=== PATIENT | male | born 1950 | race Caucasian/White ===

== ENCOUNTER 2016-12-09 17:50 | Inpatient (IN) | payer MEDICAID ==
--- NOTE | 2016-12-09 18:04 | ER Document Report ---
Doctor's Note Notes: 12/09/16 18:30 66-year-old chronic alcoholic who has stopped drinking presents after going on alcohol binge over the past week. Patient notes she's been drinking 18 beers a day. Denies a specific reason why he is doing such Patient admits shortness of breath states he always has shortness of breath I have greeted and performed a rapid initial assessment of this patient. A comprehensive ED assessment and evaluation of the patient, analysis of test results and completion of the medical decision making process will be conducted by additional ED providers. General: Well-appearing male in no respiratory distress
[2016-12-09 18:44] LABS: ABSOLUTE BASOPHILS # (AUTO) 0.1 10^3/uL (0.0-0.2); ABSOLUTE EOSINOPHILS # (AUTO) 0.1 10^3/uL (0.0-0.6); ABSOLUTE LYMPHOCYTES (AUTO) 1.6 10^3/uL (0.5-4.7); ABSOLUTE MONOCYTES (AUTO) 0.7 10^3/uL (0.1-1.4); ABSOLUTE NEUT (AUTO) 5.1 10^3/uL (1.7-8.2); BASOPHILS % (AUTO) 0.7 % (0-2); EOSINOPHILS % (AUTO) 1.5 % (0-6); HEMATOCRIT 41.1 % (37.9-51.0); HEMOGLOBIN 14.6 g/dL (13.5-17.0); HGB HCT DIFFERENCE 2.7; LYMPHOCYTES % (AUTO) 21.3 % (13-45); MEAN CORPUSCULAR HEMOGLOBIN 32.6 pg (27.0-33.4); MEAN CORPUSCULAR HGB CONC 35.5 g/dL (32.0-36.0); MEAN CORPUSCULAR VOLUME 92 fl (80-97); RED BLOOD COUNT 4.47 10^6/uL (4.35-5.55); RED CELL DISTRIBUTION WIDTH 12.6 % (11.5-14.0); SEGMENTED NEUTROPHILS % (AUTO) 67.5 % (42-78); WHITE BLOOD COUNT 7.5 10^3/uL (4.0-10.5)
[2016-12-09 19:05] LABS: ALANINE AMINOTRANSFERASE 57 U/L (21-72); ALBUMIN 4.3 g/dL (3.5-5.0); ALCOHOL 114 mg/dL (NONE DETECTED); ALKALINE PHOSPHATASE 74 U/L (38-126); ANION GAP 16 (5-19); ASPARTATE AMINO TRANSFERASE 50 U/L (17-59); BILIRUBIN,DIRECT 0.3 mg/dL (0.0-0.4); BILIRUBIN,TOTAL 0.7 mg/dL (0.2-1.3); BLOOD UREA NITROGEN 6 mg/dL (7-20); CARBON DIOXIDE 23 mmol/L (22-30); CHLORIDE 73 mmol/L (98-107); CREATINE KINASE 112 U/L (55-170); CREATININE RESULT 0.57 mg/dL (0.52-1.25); GLUCOSE 82 mg/dL (75-110); LIPASE 118.3 U/L (23-300)
[2016-12-09 19:08] LABS: APPEARANCE,URINE CLEAR; BILIRUBIN,URINE NEGATIVE (NEGATIVE); GLUCOSE, URINE NEGATIVE (NEGATIVE); KETONES,URINE TRACE mg/dL (NEGATIVE); LEUKOCYTE ESTERASE,URINE NEGATIVE (NEGATIVE); NITRITE,URINE NEGATIVE (NEGATIVE); PROTEIN,URINE NEGATIVE (NEGATIVE); URINE SPECIFIC GRAVITY 1.006; UROBILINOGEN,URINE NEGATIVE mg/dL (<2.0)
[2016-12-09 19:16] LABS: CREATINE KINASE MB 2.18 ng/mL (<4.55)
[2016-12-09 19:21] LABS: URINE BARBITURATES SCREEN NEGATIVE; URINE METHADONE SCREEN NEGATIVE; URINE OPIATES LOW NEGATIVE; URINE PHENCYCLIDINE SCREEN NEGATIVE
[2016-12-09 19:28] LABS: SODIUM 111.9 mmol/L (137-145); TROPONIN I < 0.012 ng/mL
--- NOTE | 2016-12-09 19:55 | ER Document Report ---
ED General - General Chief Complaint: Breathing Difficulty Stated Complaint: SHORT OF BREATH Notes: Patient is a 66-year-old male with past medical history of COPD and chronic alcoholism who presents with concerns about his recurrent alcohol use as well as some mild increased shortness of breath over the last 48 hours. Patient admits to being on a binge over the last several weeks taking 18-20 beers a day. He has had minimal additional food intake. He denies a prior history of complicated withdrawals. States he mostly came to the emergency department for assistance to obtain resources to help him get back on track with sobriety as an outpatient. He denies any chest pain, shortness of breath, nausea, vomiting , headache, neck pain, altered mental status the time of my evaluation. States this is similar to when he is had relapses in the past. He has not seen his primary care doctor regarding today's concerns. TRAVEL OUTSIDE OF THE [place] IN LAST 30 DAYS: No - Related Data Allergies/Adverse Reactions: prednisone Allergy (Verified 12/09/16 17:53) Past Medical History - General Information source: Patient - Social History Smoking Status: Current Every Day Smoker Frequency of alcohol use: 18 beers daily Drug Abuse: None Lives with: Family Family History: Reviewed & Not Pertinent Patient has suicidal ideation: No Patient has homicidal ideation: No Pulmonary Medical History: Reports: Hx COPD Renal/ Medical History: Denies: Hx Peritoneal Dialysis Review of Systems - Review of Systems Notes: Constitutional: Negative for fever. HENT: Negative for sore throat. Eyes: Negative for visual changes. Cardiovascular: Negative for chest pain. Respiratory: Negative for shortness of breath. Gastrointestinal: Negative for abdominal pain, vomiting or diarrhea. Genitourinary: Negative for dysuria. Musculoskeletal: Negative for back pain. Skin: Negative for rash. Neurological: Negative for headaches, weakness or numbness. 10 point ROS negative except as marked above and in HPI. Physical Exam - Vital signs Vitals: Temp Pulse Resp BP Pulse Ox 98.3 F 91 16 122/58 L 95 12/09/16 17:55 12/09/16 17:55 12/09/16 17:55 12/09/16 17:55 12/09/16 17:55 Interpretation: Normal Notes: PHYSICAL EXAMINATION: GENERAL: Well-appearing, well-nourished and in no acute distress. HEAD: Atraumatic, normocephalic. EYES: Pupils equal round and reactive to light, extraocular movements intact, sclera anicteric, conjunctiva are normal. ENT: nares patent, oropharynx clear without exudates. Moist mucous membranes. NECK: Normal range of motion, supple without lymphadenopathy LUNGS: Breath sounds clear to auscultation bilaterally and equal. No wheezes rales or rhonchi. HEART: Regular rate and rhythm without murmurs ABDOMEN: Soft, nontender, normoactive bowel sounds. No guarding, no rebound. No masses appreciated. EXTREMITIES: Normal range of motion, no pitting or edema. No cyanosis. NEUROLOGICAL: No focal neurological deficits. Moves all extremities spontaneously and on command. PSYCH: Normal mood, normal affect. SKIN: Warm, Dry, normal turgor, no rashes or lesions noted. Course - Re-evaluation Re-evalutation: 12/09/16 19:53 Patient presents with concerns of recent alcohol use as well as shortness of breath. Patient is overall extremely well in appearance, vitals within normal limits and he is in no acute distress. Lung exam is clear without any wheezing. Chest x-ray likewise is clear. Remainder laboratories obtained in triage are remarkable for a severe hyponatremia at 111 concerning for possible risk for hyponatremic seizures. Patient has been placed on seizure precautions and will be fluid restricted. He will require admission to the hospital for the severe hyponatremia - Vital Signs Vital signs: Temp Pulse Resp BP Pulse Ox 97.6 F 77 20 126/68 H 97 12/10/16 00:31 12/10/16 00:31 12/10/16 00:31 12/10/16 00:31 12/10/16 00:31 - Laboratory Result Diagrams: 12/09/16 18:30 12/10/16 00:35 Laboratory results interpreted by me: 12/09/16 12/09/16 18:30 18:30 Sodium 111.9 L* Chloride 73 L BUN 6 L Urine Ketones TRACE H Salicylates < 1.0 L Acetaminophen < 10 L - Diagnostic Test Radiology reviewed: Image reviewed, Reports reviewed Radiology results interpreted by me: 12/09/16 19:54 Chest x-ray: No acute infiltrate or mass - EKG Interpretation by Me Additional EKG results interpreted by me: 12/09/16 19:55 Normal sinus rhythm. Rate 79. No ST elevations or depressions. QTC is 455. Discharge - Discharge Clinical Impression: Hyponatremia, COPD exacerbation Condition: Fair Disposition: ADMITTED INPATIENT [facility] Admitted: [facility]
[2016-12-09] MEDS ORDERED: IPRATROPIUM/ALBUTEROL 0.5-2.5 MG/3 ML AMPUL NEB PRN (20:20)
[2016-12-09] MEDS ORDERED: ONDANSETRON HCL INJ/PF 4 MG/2 ML SDV IV PRN (20:20)
[2016-12-09] MEDS ORDERED: LORAZEPAM INJ 2 MG/1 ML VIAL IV PRN (20:20)
[2016-12-09] MEDS ORDERED: THIAMINE HCL INJ 200 MG/2 ML VIAL ONE (20:51)
[2016-12-09] MEDS ORDERED: FOLIC ACID INJ 5 MG/1 ML 10 ML VIAL ONE (20:52)
[2016-12-09] MEDS ORDERED: THIAMINE HCL 100 MG, FOLIC ACID 1 MG in NORMAL SALINE 50 ML IV ONE (21:00)
[2016-12-09] MEDS: HEPARIN SOD (PORCINE) 5,000 UNIT/ML 1 ML SYRINGE SUBCUT SCH (22:03)
--- NOTE | 2016-12-09 22:08 | PDOC H&P ---
History of Present Illness Admission Date/PCP: 12/09/16 21:28 Patient complains of: Shortness of breath History of Present Illness: JANET VICTOR is a 66 year old male with a past medical history of hypertension, alcohol dependence, COPD and Tobacco Dependence. He been in his usual state of health until approximately 48 hours prior to presentation with excessive shortness of breath with exertion and nonproductive cough. He denies fever chills nausea vomiting but admits developing alcohol withdrawal tremor his last drink was 4 hours ago and normally drinks approximately 18 beers a day. His sodium is markedly abnormal at 111 he is referred to the hospitalist for admission denying headache blurred vision or confusion Past Medical History Cardiac Medical History: Reports: Hypertension Pulmonary Medical History: Reports: Chronic Obstructive Pulmonary Disease (COPD) Psychiatric Medical History: Reports: Alcohol Dependency, Tobacco Dependency Social History Smoking Status: Current Every Day Smoker Cigarettes Packs Per Day: 3 - 144pk/yrs Frequency of Alcohol Use: Heavy - Admit 18 beers per day with history of blackouts and DTs Drugs: None - Advance Directive Resuscitation Status: Full Code Family History Family History: COPD Parental Family History Reviewed: Yes Children Family History Reviewed: Yes Sibling(s) Family History Reviewed.: Yes Medication/Allergy Allergies/Adverse Reactions: prednisone Allergy (Verified 12/09/16 17:53) Review of Systems Constitutional: ABSENT: chills, fever(s), headache(s), weight gain, weight loss Eyes: ABSENT: visual disturbances Ears: ABSENT: hearing changes Cardiovascular: ABSENT: chest pain, dyspnea on exertion, edema, orthropnea, palpitations Respiratory: PRESENT: cough, dyspnea. ABSENT: hemoptysis, sputum Gastrointestinal: ABSENT: abdominal pain, constipation, diarrhea, hematemesis, hematochezia, nausea, vomiting Genitourinary: ABSENT: dysuria, hematuria Neurological: ABSENT: abnormal gait, abnormal speech, confusion, dizziness, focal weakness, syncope Psychiatric: ABSENT: anxiety, depression, homidical ideation, suicidal ideation Endocrine: ABSENT: cold intolerance, heat intolerance, polydipsia, polyuria Hematologic/Lymphatic: ABSENT: easy bleeding, easy bruising Physical Exam Vital Signs: Temp Pulse Resp BP Pulse Ox 98.3 F 91 17 148/79 H 96 12/09/16 17:55 12/09/16 17:55 12/09/16 20:30 12/09/16 20:30 12/09/16 20:30 General appearance: PRESENT: no acute distress, well-developed, well-nourished Head exam: PRESENT: atraumatic, normocephalic Eye exam: PRESENT: conjunctiva pink, EOMI, PERRLA. ABSENT: scleral icterus Ear exam: PRESENT: normal external ear exam Mouth exam: PRESENT: moist, tongue midline Neck exam: ABSENT: carotid bruit, JVD, lymphadenopathy, thyromegaly Respiratory exam: PRESENT: accessory muscle use, crackles, prolonged expiratory phas, symmetrical, tachypnea. ABSENT: rales, rhonchi, wheezes Cardiovascular exam: PRESENT: RRR. ABSENT: diastolic murmur, rubs, systolic murmur Pulses: PRESENT: normal dorsalis pedis pul Vascular exam: PRESENT: normal capillary refill GI/Abdominal exam: PRESENT: normal bowel sounds, soft. ABSENT: distended, guarding, mass, organolmegaly, rebound, tenderness Rectal exam: PRESENT: deferred Extremities exam: PRESENT: full ROM. ABSENT: calf tenderness, clubbing, pedal edema Neurological exam: PRESENT: alert, awake, oriented to person, oriented to place , oriented to time, oriented to situation, CN II-XII grossly intact. ABSENT: motor sensory deficit Psychiatric exam: PRESENT: appropriate affect, normal mood. ABSENT: homicidal ideation, suicidal ideation Skin exam: PRESENT: dry, intact, warm. ABSENT: cyanosis, rash Results Impressions: Chest X-Ray 12/09/16 18:19 IMPRESSION: Small right basilar atelectasis -effusion. Assessment & Plan - Diagnosis (1) Hyponatremia Is this a current diagnosis for this admission?: YesPlan: Likely secondary to excessive beer intake though medication reconciliation is incomplete. He appears somewhat volume overloaded he'll be on a fluid restriction with chemistry every 4 hours avoiding eye correction of over 12 points in 24 hours (2) COPD exacerbation Is this a current diagnosis for this admission?: YesPlan: Symptomatically management supplemental oxygen, flutter valve, albuterol and Atrovent, consider steroids (3) Alcohol dependence Is this a current diagnosis for this admission?: YesPlan: Thiamine and folate, Ativan when necessary given history of DTs (4) Alcohol withdrawal Is this a current diagnosis for this admission?: YesPlan: Supportive care, Ativan and thiamine (5) Tobacco dependence Is this a current diagnosis for this admission?: YesPlan: 168-[id number] history Tobacco Dependence patient received tobacco cessation counseling and offered nicotine replacement options - Time Time Spent: 50 to 70 Minutes - Inpatient Certification Medical Necessity: Need Close Monitoring Due to Risk of Patient Decompensation
--- NOTE | 2016-12-10 00:06 | EKG REPORT ---
SEVERITY:- NORMAL ECG - SINUS RHYTHM : Confirmed by: Deedee Mckee 10-Dec-2016 00:06:11
[2016-12-10 00:42] LABS: PHOSPHORUS 2.7 mg/dL (2.5-4.5)
[2016-12-10] MEDS ORDERED: LORAZEPAM INJ 2 MG/1 ML VIAL IV ONE (00:51)
[2016-12-10 01:22] LABS: ANION GAP 13 (5-19); BLOOD UREA NITROGEN 6 mg/dL (7-20); CALCIUM 9.4 mg/dL (8.4-10.2); CARBON DIOXIDE 25 mmol/L (22-30); CHLORIDE 78 mmol/L (98-107); CREATININE RESULT 0.52 mg/dL (0.52-1.25); GLUCOSE 85 mg/dL (75-110); POTASSIUM 3.8 mmol/L (3.6-5.0)
[2016-12-10 01:27] LABS: SODIUM 115.5 mmol/L (137-145)
[2016-12-10 03:15] LABS: ABSOLUTE EOSINOPHILS # (AUTO) 0.1 10^3/uL (0.0-0.6); ABSOLUTE LYMPHOCYTES (AUTO) 1.6 10^3/uL (0.5-4.7); ABSOLUTE MONOCYTES (AUTO) 0.7 10^3/uL (0.1-1.4); ABSOLUTE NEUT (AUTO) 6.9 10^3/uL (1.7-8.2); BASOPHILS % (AUTO) 0.4 % (0-2); EOSINOPHILS % (AUTO) 1.3 % (0-6); HEMATOCRIT 39.5 % (37.9-51.0); HEMOGLOBIN 13.6 g/dL (13.5-17.0); HGB HCT DIFFERENCE 1.3; LYMPHOCYTES % (AUTO) 17.4 % (13-45); MEAN CORPUSCULAR HEMOGLOBIN 31.9 pg (27.0-33.4); MEAN CORPUSCULAR HGB CONC 34.5 g/dL (32.0-36.0); MEAN CORPUSCULAR VOLUME 93 fl (80-97); MONOCYTES % (AUTO) 7.9 % (3-13); RED BLOOD COUNT 4.26 10^6/uL (4.35-5.55); RED CELL DISTRIBUTION WIDTH 12.7 % (11.5-14.0); WHITE BLOOD COUNT 9.4 10^3/uL (4.0-10.5)
[2016-12-10 05:49] LABS: ANION GAP 12 (5-19); BLOOD UREA NITROGEN 8 mg/dL (7-20); CALCIUM 8.7 mg/dL (8.4-10.2); CARBON DIOXIDE 26 mmol/L (22-30); CHLORIDE 78 mmol/L (98-107); CREATININE RESULT 0.58 mg/dL (0.52-1.25); GLUCOSE 75 mg/dL (75-110); POTASSIUM 3.6 mmol/L (3.6-5.0)
[2016-12-10] MEDS: HEPARIN SOD (PORCINE) 5,000 UNIT/ML 1 ML SYRINGE SUBCUT SCH ×3 (05:55→22:27)
[2016-12-10 06:02] LABS: SODIUM 115.9 mmol/L (137-145)
[2016-12-10 08:49] LABS: ANION GAP 15 (5-19); BLOOD UREA NITROGEN 8 mg/dL (7-20); CALCIUM 9.3 mg/dL (8.4-10.2); CARBON DIOXIDE 25 mmol/L (22-30); CHLORIDE 79 mmol/L (98-107); CREATININE RESULT 0.51 mg/dL (0.52-1.25); GLUCOSE 87 mg/dL (75-110); POTASSIUM 3.6 mmol/L (3.6-5.0)
[2016-12-10 08:53] LABS: SODIUM 118.6 mmol/L (137-145)
[2016-12-10] MEDS: THIAMINE HCL 100 MG, FOLIC ACID 1 MG in NORMAL SALINE 50 ML IV SCH (09:53)
--- NOTE | 2016-12-10 10:44 | PDOC PROGRESS REPORT ---
Subjective Progress Note for:: 12/10/16 Subjective:: Patient denies any complaints. Physical Exam Vital Signs: Temp Pulse Resp BP Pulse Ox 97.4 F 86 20 122/71 95 12/10/16 07:21 12/10/16 07:21 12/10/16 07:21 12/10/16 07:21 12/10/16 07:21 Intake & Output 12/09/16 12/10/16 12/11/16 06:59 06:59 06:59 Intake Total 2 Output Total 150 Balance -148 Weight 62.7 kg General appearance: PRESENT: no acute distress Eye exam: PRESENT: conjunctiva pink. ABSENT: scleral icterus Mouth exam: PRESENT: moist, tongue midline Neck exam: ABSENT: JVD Respiratory exam: PRESENT: clear to auscultation cassidy. ABSENT: rales, rhonchi, wheezes Cardiovascular exam: PRESENT: RRR. ABSENT: diastolic murmur, rubs, systolic murmur GI/Abdominal exam: PRESENT: normal bowel sounds, soft. ABSENT: distended, guarding, mass, organolmegaly, rebound, tenderness Extremities exam: ABSENT: calf tenderness, clubbing, pedal edema Neurological exam: PRESENT: alert, awake, oriented to person, oriented to place , oriented to time, oriented to situation, CN II-XII grossly intact. ABSENT: motor sensory deficit Psychiatric exam: PRESENT: appropriate affect Skin exam: PRESENT: dry, intact, warm. ABSENT: cyanosis, rash Results Laboratory Results: 12/10/16 02:56 12/10/16 08:19 12/10/16 12/10/16 12/10/16 00:35 02:56 02:56 WBC 9.4 RBC 4.26 L Hgb 13.6 Hct 39.5 MCV 93 MCH 31.9 MCHC 34.5 RDW 12.7 Plt Count 219 Seg Neutrophils % 73.0 Lymphocytes % 17.4 Monocytes % 7.9 Eosinophils % 1.3 Basophils % 0.4 Absolute Neutrophils 6.9 Absolute Lymphocytes 1.6 Absolute Monocytes 0.7 Absolute Eosinophils 0.1 Absolute Basophils 0.0 Sodium 115.5 L* Potassium 3.8 Chloride 78 L Carbon Dioxide 25 Anion Gap 13 BUN 6 L Creatinine 0.52 Est GFR ( Amer) > 60 Est GFR (Non-Af Amer) > 60 Glucose 85 Calcium 9.4 Magnesium 1.8 12/10/16 12/10/16 04:17 08:19 WBC RBC Hgb Hct MCV MCH MCHC RDW Plt Count Seg Neutrophils % Lymphocytes % Monocytes % Eosinophils % Basophils % Absolute Neutrophils Absolute Lymphocytes Absolute Monocytes Absolute Eosinophils Absolute Basophils Sodium 115.9 L* 118.6 L* Potassium 3.6 3.6 Chloride 78 L 79 L Carbon Dioxide 26 25 Anion Gap 12 15 BUN 8 8 Creatinine 0.58 0.51 L Est GFR ( Amer) > 60 > 60 Est GFR (Non-Af Amer) > 60 > 60 Glucose 75 87 Calcium 8.7 9.3 Magnesium Impressions: Chest X-Ray 12/09/16 18:19 IMPRESSION: Small right basilar atelectasis -effusion. Assessment & Plan - Diagnosis (1) COPD exacerbation Is this a current diagnosis for this admission?: YesPlan: The patient has had improvement in his respiratory status and no longer has wheezes. We'll continue with nebulizers. (2) Hyponatremia Is this a current diagnosis for this admission?: YesPlan: Patient is on a fluid restriction and his sodium has been is improving. As long as his sodium continues to improve we can hopefully discharge home tomorrow. (3) Alcohol dependence Is this a current diagnosis for this admission?: YesPlan: Patient is on Ativan when necessary and has no evidence for withdrawal this time. (4) Alcohol withdrawal Is this a current diagnosis for this admission?: YesPlan: No evidence for delirium tremens at this time (5) Tobacco dependence Is this a current diagnosis for this admission?: YesPlan: Patient is on a nicotine patch which we will continue. - Time Time Spent with patient: 25-34 minutes - Inpatient Certification Medical Necessity: Need Close Monitoring Due to Risk of Patient Decompensation - Plan Summary Plan Summary: If his sodium continues to improve we can hopefully discharge home tomorrow.
[2016-12-10] MEDS ORDERED: NICOTINE 21 MG/24 HR PATCH.TD24 TD ONE (11:30)
--- NOTE | 2016-12-10 13:46 | PSYCHOLOGICAL NOTE ---
Psych Note - Psych Note Psych Note: Reviewed patient's record in preparation for consultation. Discussed case with Hospitalist Sangita who states the consultation is no longer needed. Please call in the event this changes. Thank you.
[2016-12-10] MEDS: LOPERAMIDE HCL 2 MG CAPSULE PO PRN (18:54)
[2016-12-11] MEDS: LOPERAMIDE HCL 2 MG CAPSULE PO PRN (00:14)
[2016-12-11 05:18] LABS: BLOOD UREA NITROGEN 9 mg/dL (7-20); CALCIUM 8.8 mg/dL (8.4-10.2); CARBON DIOXIDE 27 mmol/L (22-30); CHLORIDE 84 mmol/L (98-107); CREATININE RESULT 0.53 mg/dL (0.52-1.25); GLUCOSE 85 mg/dL (75-110); POTASSIUM 3.4 mmol/L (3.6-5.0)
[2016-12-11 05:33] LABS: ANION GAP 11 (5-19)
[2016-12-11 05:45] LABS: SODIUM 121.6 mmol/L (137-145)
[2016-12-11] MEDS: HEPARIN SOD (PORCINE) 5,000 UNIT/ML 1 ML SYRINGE SUBCUT SCH (06:23)
[2016-12-11 08:22] VITALS: BP 119/76
[2016-12-11] MEDS ORDERED: NICOTINE 21 MG/24 HR PATCH.TD24 TD SCH (10:00)
[2016-12-11] MEDS: THIAMINE HCL 100 MG, FOLIC ACID 1 MG in NORMAL SALINE 50 ML IV SCH (10:23)
--- NOTE | 2016-12-11 10:35 | PDOC DISCHARGE SUMMARY ---
General - Admit/Disc Date/PCP Admission Date/Primary Care Provider: 12/09/16 20:20 Discharge Date: 12/11/16 - Discharge Diagnosis (1) COPD exacerbation Is this a current diagnosis for this admission?: Yes (2) Hyponatremia Is this a current diagnosis for this admission?: YesSummary: Secondary to alcohol use. (3) Alcohol dependence Is this a current diagnosis for this admission?: YesSummary: No evidence for delirium tremens. (4) Alcohol withdrawal Is this a current diagnosis for this admission?: YesSummary: No evidence for delirium tremens. (5) Tobacco dependence Is this a current diagnosis for this admission?: Yes - Additional Information Resuscitation Status: Full Code Discharge Diet: Cardiac, Other (Comments) - limit fluid intake to 2 liters. no beer Discharge Activity: Activity As Tolerated Home Medications: Albuterol Sulfate [Proair HFA Inhalation Aerosol 8.5 gm MDI] 2 puff IH Q4HP PRN 12/10/16 Budesonide/Formoterol Fumarate [Symbicort HFA 160-4.5 mcg Inhaler 6 gm] 2 puff IH BID 12/10/16 Enalapril Maleate [Vasotec 20 mg Tablet] 20 mg PO DAILY 12/10/16 Nicotine [Nicoderm 21 mg/24 Hr Transderm Patch] 1 patch TOP DAILY 12/10/16 Tiotropium Llewellyn [Spiriva Handihaler 5 Cap/Kit (18 Mcg/Cap)] 1 puff IH DAILY 12/10/16 Loperamide HCl [Imodium 2 mg Capsule] 2 mg PO Q4HP PRN #30 capsule 12/11/16 Nicotine [Nicoderm 21 mg/24 Hr Transderm Patch] 1 each TD DAILY patch.td24 11/24 History of Present Illness History of Present Illness: JANET VICTOR is a 66 year old male who presented with a 48 hour history of shortness of breath and a nonproductive cough. The patient reported he had not drank for approximately 4 hours and did have some alcohol withdrawal tremor. He was noted to have sodium of 111 is admitted for his hyponatremia and COPD. Hospital Course Hospital Course: 66-year-old gentleman who presented with some shortness of breath and a nonproductive cough. He was noted to have a sodium of the 111 when he presented. The patient is a heavy beer drinker and has at least 18 beers per day. He was admitted and started on a fluid restriction for his hyponatremia and treated with nebulizers for his COPD. The patient had improvement in his sodium and on the day of discharge was up to 120. The patient had no neurological compromise because of his hyponatremia. The patient was felt to be stable for discharge and he's instructed to stop drinking alcohol and to try to limit himself to 2 L of fluid daily. Patient had no evidence for delirium tremens during this hospitalization. His hydrochlorothiazide also was stopped. Physical Exam Vital Signs: Temp Pulse Resp BP Pulse Ox 97.9 F 82 20 119/76 96 12/11/16 08:23 12/11/16 08:23 12/11/16 08:23 12/11/16 08:23 12/11/16 08:23 Intake & Output 12/10/16 12/11/16 12/12/16 06:59 06:59 06:59 Intake Total 2 1474 Output Total 150 1525 Balance -148 -51 Weight 62.7 kg 61.3 kg General appearance: PRESENT: no acute distress Eye exam: PRESENT: conjunctiva pink. ABSENT: scleral icterus Mouth exam: PRESENT: moist, tongue midline Neck exam: ABSENT: carotid bruit, JVD, lymphadenopathy, thyromegaly Respiratory exam: PRESENT: clear to auscultation cassidy. ABSENT: rales, rhonchi, wheezes Cardiovascular exam: PRESENT: RRR. ABSENT: diastolic murmur, rubs, systolic murmur GI/Abdominal exam: PRESENT: normal bowel sounds, soft. ABSENT: distended, guarding, mass, organolmegaly, rebound, tenderness Extremities exam: ABSENT: calf tenderness, clubbing, pedal edema Neurological exam: PRESENT: alert, awake, oriented to person, oriented to place , oriented to time, oriented to situation, CN II-XII grossly intact. ABSENT: motor sensory deficit Psychiatric exam: PRESENT: appropriate affect Skin exam: PRESENT: dry, intact, warm. ABSENT: cyanosis, rash Results Laboratory Results: 12/10/16 02:56 12/11/16 04:05 12/11/16 04:05 Sodium 121.6 L Potassium 3.4 L Chloride 84 L Carbon Dioxide 27 Anion Gap 11 BUN 9 Creatinine 0.53 Est GFR ( Amer) > 60 Est GFR (Non-Af Amer) > 60 Glucose 85 Calcium 8.8 Impressions: Chest X-Ray 12/09/16 18:19 IMPRESSION: Small right basilar atelectasis -effusion. Qualifiers PATEINT BEING DISCHARGED WITH ANY OF THE FOLLOWING DIAGNOSIS?: No Plan Discharge Plan: He will follow-up with primary care in 2 weeks. Time Spent: Greater than 30 Minutes
== END 2016-12-11 10:45 | disposition home or self-care (01) | DRG 191 ==
LOC: ER 17:50 → EH 20:20 → UNDOADMIN 21:28 → 3W 12-10 00:04
PROVIDERS: ADMIT Internal Medicine; ATTEND Internal Medicine
PROC: 3E0F7GC Introduction of Other Therapeutic Substance into Respiratory Tract, Via Natural or Artificial Opening (ICD-10-PCS; principal; 2016-12-09)
DX: J44.1 Chronic obstructive pulmonary disease with (acute) exacerbation (principal); E87.1 Hypo-osmolality and hyponatremia; F10.239 Alcohol dependence with withdrawal, unspecified; I10 Essential (primary) hypertension; Z79.899 Other long term (current) drug therapy; F17.210 Nicotine dependence, cigarettes, uncomplicated; Z88.8 Allergy status to other drugs, medicaments and biological substances
CPT/HCPCS: 36415; 71020; 80048; 80053; 80307; 81001; 82550; 82553; 83690; 83735; 83880; 84100; 84443; 84484; 85025; 93005; 93010; 99285; J1644; J2060; J3411; J3490